=== PATIENT | female | born 1950 | race Caucasian/White ===

== ENCOUNTER 2017-07-22 15:46 | Emergency (ER) | END 2017-07-22 18:06 | disposition home or self-care (01) ==

== ENCOUNTER 2017-07-31 14:38 | Emergency (ER) | END 2017-07-31 17:15 | disposition home or self-care (01) ==

== ENCOUNTER 2017-08-12 16:01 | Emergency (ER) | END 2017-08-12 16:54 | disposition home or self-care (01) ==

== ENCOUNTER 2018-03-13 19:20 | Emergency (ER) | END 2018-03-13 22:46 | disposition left against medical advice (07) ==

== ENCOUNTER 2018-03-14 17:02 | Emergency (ER) | END 2018-03-14 19:50 | disposition home or self-care (01) ==

== ENCOUNTER 2018-05-09 15:20 | Emergency (ER) | END 2018-05-09 17:46 | disposition home or self-care (01) ==